=== PATIENT | female | born 2000 | race Caucasian/White ===

== ENCOUNTER 2023-10-09 08:48 | Inpatient (IN) | payer OTHER ==
[2023-10-09] MEDS: ELECTROLYTE-148 SOLN 1,000 ML IV ONE (10:00)
[2023-10-09 10:36] VITALS: BMI 30.9
[2023-10-09] MEDS: CITRIC ACID/SODIUM CITRATE 30 ML UNIT-DOSE CUP PO ONE (13:30)
[2023-10-09] MEDS: ELECTROLYTE-148 SOLN 1,000 ML IV SCH (13:30)
[2023-10-09] MEDS ORDERED: ONDANSETRON 4 MG/2 ML VIAL ONE (14:11)
[2023-10-09] MEDS ORDERED: OXYTOCIN 10 UNITS/ML VIAL ONE (14:11)
[2023-10-09] MEDS ORDERED: PHENYLEPHRINE HCL 10 MG/1 ML SINGLE DOSE VIAL ONE (14:11)
[2023-10-09] MEDS ORDERED: morphine SULFATE/PF 1 MG/2 ML (2cc Syringe - QUVA) ONE (14:12)
[2023-10-09] MEDS ORDERED: FENTANYL CITRATE/PF 50 MCG/ML VIAL ONE (14:12)
[2023-10-09] MEDS ORDERED: ceFAZolin SODIUM 1 GM VIAL ONE (14:12)
[2023-10-09] MEDS ORDERED: KETOROLAC TROMETHAMINE 30 MG/1 ML VIAL ONE (14:12)
[2023-10-09] MEDS: ACETAMINOPHEN 1000 MG/100 ML BAG IVPB PRN (17:34)
[2023-10-09] MEDS: OXYTOCIN 20 UNITS in 0.9% NS 20 UNIT/1,000 ML INFUS.BAG IV SCH (17:34)
[2023-10-09] MEDS ORDERED: ACETAMINOPHEN INJECTION 100 ML IVPB ONE (17:35)
[2023-10-09] MEDS ORDERED: OXYTOCIN 20 UNITS in 0.9% NS 20 UNIT/1,000 ML INFUS.BAG IV ONE (17:35)
[2023-10-09] MEDS: IBUPROFEN 800 MG/8 ML IJ IVPB PRN (20:43)
[2023-10-10] MEDS: METHYLERGONOVINE MALEATE 0.2 MG/1 ML AMP IM PRN (01:15)
[2023-10-10] MEDS ORDERED: oxyCODONE HCL 5 MG TABLET PO PRN ×2 (03:50)
[2023-10-10] MEDS: SIMETHICONE 80 MG TAB.CHEW (FP) PO PRN (07:31)
[2023-10-10] MEDS: FERROUS SO4 325 MG TABLET (FP) PO SCH (07:31)
[2023-10-10 07:39] LABS: BASO % 0.5 % (0-2.0); EOS % 0.4 % (0-4.5); HEMATOCRIT 37.7 % (32.4-45.2); HEMOGLOBIN 12.7 GM/dL (10.7-15.3); LYMPH % 14.4 % (8-40); MCH 32.9 pg (25.7-33.7); MCHC 33.8 g/dl (32.0-36.0); MEAN CELL VOLUME 97.4 fl (80-96); MEAN PLT VOLUME 8.1 fl (7.5-11.1); MONO % 6.6 % (3.8-10.2); NEUT % 78.1 % (42.8-82.8); PLATELET COUNT 206 10^3/uL (134-434); RBC 3.87 M/mm3 (3.60-5.2); RDW 12.8 % (11.6-15.6); WHITE BLOOD COUNT 13.7 K/mm3 (4.0-10.0)
[2023-10-10] MEDS: PRENATAL VITAMINS W/ FOLIC ACID TABLET (FP) PO SCH (10:44)
[2023-10-10] MEDS: ACETAMINOPHEN 325 MG TABLET (FP) PO PRN (10:59)
[2023-10-10] MEDS: IBUPROFEN 600 MG TABLET (FP) PO PRN (15:04)
[2023-10-10] MEDS ORDERED: BISACODYL 10 MG SUPP.RECT RC PRN (15:50)
[2023-10-10] MEDS: SENNOSIDES/DOCUSATE COMBO (SENNA PLUS) TABLET (UD) PO PRN (22:09)
[2023-10-12 11:15] VITALS: BP 90/63; PULSE 82; RESP 17; TEMP 97.8
== END 2023-10-12 11:20 | disposition home or self-care (01) | DRG 540 ==
LOC: JLDR 08:48 → J3W 18:00
PROVIDERS: ADMIT Obstetrics & Gynecology; ATTEND Obstetrics & Gynecology
PROC: 10D00Z1 Extraction of Products of Conception, Low, Open Approach (ICD-10-PCS; principal; 2023-10-09)
DX: O36.5930 Maternal care for other known or suspected poor fetal growth, third trimester, not applicable or unspecified (principal); O32.8XX0 Maternal care for other malpresentation of fetus, not applicable or unspecified; O34.03 Maternal care for unspecified congenital malformation of uterus, third trimester; Z3A.37 37 weeks gestation of pregnancy; Z37.0 Single live birth
CPT/HCPCS: 36415; 80053; 85025; 85610; 85730; 86780; 86850; 86900; 86901; 87389; 88307-TC; J0131

== ENCOUNTER 2023-10-16 20:29 | Emergency (ER) | payer OTHER ==
[2023-10-16 20:34] VITALS: BP 114/65; PULSE 94; RESP 18; TEMP 98.4; BMI 26.6
[2023-10-16] MEDS ORDERED: ACETAMINOPHEN 500 MG TABLET (FP) ONE (21:33)
[2023-10-16] MEDS: ACETAMINOPHEN 500 MG TABLET (FP) PO ONE (21:34)
== END 2023-10-16 22:19 | disposition home or self-care (01) ==
LOC: JERFT 20:29
DX: Z48.01 Encounter for change or removal of surgical wound dressing (principal)
CPT/HCPCS: 99283-25